=== PATIENT | female | born 1985 | race Caucasian/White ===

== ENCOUNTER → 2016-04-15 | Outpatient (CLI) | payer OTHER | LOC: YCFC.O 13:54 | PROVIDERS: ATTEND Nurse Practitioner Family | DX: O90.5 Postpartum thyroiditis (principal); R53.83 Other fatigue; R89.9 Unspecified abnormal finding in specimens from other organs, systems and tissues; Z86.2 Personal history of diseases of the blood and blood-forming organs and certain disorders involving the immune mechanism ==

== ENCOUNTER → 2016-04-18 | Outpatient (CLI) | payer OTHER | LOC: LAB.O 12:10 | PROVIDERS: ATTEND Nurse Practitioner Family | DX: R53.83 Other fatigue (principal) ==

== ENCOUNTER → 2017-03-17 | Outpatient (CLI) | payer OTHER | END | disposition home or self-care (01) | LOC: LAB.O 08:00 | PROVIDERS: ATTEND Obstetrics & Gynecology | DX: Z01.419 Encounter for gynecological examination (general) (routine) without abnormal findings (principal) ==

== ENCOUNTER → 2017-03-22 | Outpatient (CLI) | payer OTHER | END | disposition home or self-care (01) | LOC: LAB.O 09:31 | PROVIDERS: ATTEND Obstetrics & Gynecology | DX: E06.3 Autoimmune thyroiditis (principal) ==

== ENCOUNTER → 2017-03-24 | Outpatient (CLI) | payer OTHER | END | disposition home or self-care (01) | LOC: YCFC.O 08:28 | PROVIDERS: ATTEND Nurse Practitioner Family | DX: J09.X2 Influenza due to identified novel influenza A virus with other respiratory manifestations (principal) ==

== ENCOUNTER → 2018-10-02 | Outpatient (CLI) | payer BC, OTHER ==
--- NOTE | 2018-10-02 11:57 | CT ---
EXAM DESCRIPTION: CT ABDOMEN AND PELVIS WITHOUT AND WITH CONTRAST CLINICAL HISTORY: ABD PAIN COMPARISON: CT abdomen and pelvis May 01, 2009 TECHNIQUE: CT of the abdomen and pelvis are performed prior to and during IV bolus administration of 100 mL of Isovue 300. Oral contrast media is administered as well. FINDINGS: CT abdomen The lung bases are clear of infiltrate. Low density liver consistent with diffuse hepatic steatosis. Liver is otherwise normal in size with no focal lesion on the precontrast images. Spleen, pancreas, and kidneys are unremarkable. No calcified gallstones or calcified kidney stones. No ureteral stones. After IV contrast administration, normal enhancement of upper abdominal vessels. Normal enhancement of the kidneys, spleen, liver and pancreas. Delayed images show normal contrast accumulation in the urinary collecting systems. No filling defects in the renal pelves or ureters. There is contrast in the urinary bladder. No filling defect in the bladder. CT pelvis No inflammation is seen around the cecum or terminal ileum or sigmoid colon. Appendix is normal in appearance. No stones are seen in the distal ureters or bladder. Normal pelvic small bowel loops. No fracture or lytic lesion of the osseous structures. Postcontrast images show normal enhancement of the pelvic vessels. Uterus and ovaries appear normal for age. A few physiologic-appearing cystic structures in the ovaries. Fatty patulous inguinal canals bilaterally. Minimal ventral herniation of fat at the umbilical level. IMPRESSION: Moderate diffuse hepatic steatosis. No acute upper abdominal process. No acute process in the pelvis. This exam was performed according to our departmental dose-optimization program, which includes automated exposure control, adjustment of the mA and/or kV according to patient size and/or use of iterative reconstruction technique. Electronically signed by: Chance Briggs MD 10/02/2018 11:54 AM CDT
== END ==
LOC: LAB 10:34
PROVIDERS: ATTEND Family Medicine
DX: K76.0 Fatty (change of) liver, not elsewhere classified (principal)

== ENCOUNTER → 2018-11-28 | Outpatient (CLI) | payer OTHER | LOC: YCFC.O 16:01 | PROVIDERS: ATTEND Nurse Practitioner Family | DX: R00.0 Tachycardia, unspecified (principal) ==

== ENCOUNTER → 2018-12-03 | Outpatient (CLI) | payer SELFPAY | DX: R00.0 Tachycardia, unspecified (principal) ==

== ENCOUNTER → 2019-03-29 | Outpatient (CLI) | payer BC ==
--- NOTE | 2019-03-29 11:03 | US ---
US THYROID CLINICAL STATEMENT: Thyrotoxicosis, unspecified without thyrotoxic crisis or storm. . No thyroid surgery or therapy. COMPARISON: None TECHNIQUE: Transcutaneous scanning, grayscale and Doppler modes. FINDINGS: Size right thyroid lobe: 4.4 x 1.8 x 1.2 cm Size left thyroid lobe: 4.7 x 1.6 x 1.1 cm Size isthmus: 2.7 cm Estimated total number of nodules greater than or equal to 1 cm: None. No dominant solid mass or distinct cyst. No parenchymal edema or large calcifications. No overlying skin changes. Soft tissues around the thyroid gland are unremarkable. IMPRESSION: 1. No nodules, dominant solid masses or distinct cyst in the thyroid gland. Heterogeneous echotexture but not enlarged. 2. Soft tissue around the thyroid gland is unremarkable. *ACR TI-RADS 2017 Recommendations for imaging follow-up of nodules: TR1: No FNA or follow up TR2: No FNA or follow up TR3: FNA if >/= 2.5 cm, follow up if 1.5 - 2.4 cm in 1, 3, and 5 years TR4: FNA if >/= 1.5 cm, follow up if 1.0 - 1.4 cm in 1, 2, 3, and 5 years TR5: FNA if >/= 1.0 cm, follow up if 0.5 - 0.9 cm every year for 5 years ACR TI-RADS recommends that no more than two nodules with the highest ACR TI-RADS total point should be biopsied and no more than four nodules should be followed. These recommendations do not apply to patients with increased risk for thyroid cancer or patients with symptomatic thyroid disease. Electronically signed by: Kali Ahn MD 03/29/2019 11:01 AM [facility]
== END ==
LOC: US 08:19
PROVIDERS: ATTEND Internal Medicine
DX: E05.90 Thyrotoxicosis, unspecified without thyrotoxic crisis or storm (principal)